=== PATIENT | male | born 1995 | race Two or more races ===

== ENCOUNTER → 2024-08-22 | Outpatient (CLI) | payer MEDICAID, SELFPAY ==
--- NOTE | 2024-08-22 16:00 | XR_ITS ---
Examination: Abdomen sonogram, Limited Date and time of exam: August 22, 2024 1614 hours INDICATIONS: Palpable lump at the umbilicus with pain beginning one month ago Technique: Real-time toscano scale transabdominal sonographic images of the upper abdomen obtained. Findings: Soft tissue mass consistent with hernia defect at the umbilicus, 18 x 13 x 16 mm, which does not appear to contain bowel IMPRESSION: Ultrasound findings consistent with umbilical hernia defect, consider CT scan abdomen pelvis without contrast follow-up
== END | disposition home or self-care (01) ==
PROVIDERS: PCP Registered Nurse Community Health; Referring Provider Nurse Practitioner Family; Visit Provider Nurse Practitioner Family
DX: R19.05 Periumbilic swelling, mass or lump (principal)
CPT/HCPCS: 76705

== ENCOUNTER → 2024-11-09 | Outpatient (CLI) | payer MEDICAID, SELFPAY ==
--- NOTE | 2024-11-09 16:30 | XR_ITS ---
Exam: MRI knee without contrast, right Date and time of exam: November 09, 2024 1638 hours INDICATIONS: Medial knee pain beginning 4 months ago Technique: Multiple axial, coronal, and sagittal sections on the knee have been obtained. T2-Weighted sagittal, fat-suppressed images, TR 3,500, TE 62, T2 weighted coronal fat-saturated images, TR 3,500, TE 62 Proton density sagittal sections, TR 1800, TE 31. T-1 weighted coronal images, TR 524, TE 13.0 Findings: Medial meniscus anterior horn intact. Medial meniscus, body peripheral horizontal linear tear coronal image 14. Posterior horn medial meniscus horizontal linear tear communicating inner margin sagittal image 3. Lateral meniscus anterior horn is intact Lateral meniscus, body is intact Posterior horn lateral meniscus is intact Anterior cruciate ligament moderate strain. Posterior cruciate ligament appears intact. Knee effusion is moderate. Quadriceps and patellar tendons appear intact. There is no evidence of tendinosis. Inflammatory change or fracture of Hoffa's fat pad is not seen. Medial patellar facet demonstrates no thinning. Lateral patellar facet cartilage demonstrates no thinning. Trochlear cartilage demonstrates no thinning. Marrow signal adequate. Medial collateral ligament appears intact. No meniscocapsular separation is seen. Illiotibial band and fibular collateral ligament are intact. Biceps femoris tendons appear intact. Medial femoral condylar articular cartilage demonstrates mild thinning. Lateral femoral condylar articular cartilage demonstratesmild thinning. Tibial plateau cartilage demonstrates mild thinning. Impression: Tears of the body and posterior horn medial meniscus Moderate strain anterior cruciate ligament
== END | disposition home or self-care (01) ==
PROVIDERS: PCP Registered Nurse Community Health; Referring Provider Orthopaedic Surgery; Visit Provider Orthopaedic Surgery
DX: S83.241A Other tear of medial meniscus, current injury, right knee, initial encounter (principal); X58.XXXA Exposure to other specified factors, initial encounter; M23.8X1 Other internal derangements of right knee
CPT/HCPCS: 73721